=== PATIENT | female | born 2000 | race Caucasian/White ===

== ENCOUNTER 2022-07-06 15:48 | Emergency (ER) | payer OTHER ==
[~2022-07-06] VITALS: Ht 154.9 cm; Wt 100.0 kg
[2022-07-06 16:47] LABS: CLARITY URINE CLEAR (CLEAR); COLOR URINE YELLOW (YELLOW); KETONES URINE NEGATIVE (NEGATIVE); LEUKOCYTE ESTERASE URINE NEGATIVE (NEGATIVE); NITRITE URINE NEGATIVE (NEGATIVE); OCCULT BLOOD URINE NEGATIVE (NEGATIVE); PH URINE 7.5 (4.5-8.0); PROTEIN URINE NEGATIVE (NEGATIVE); SPECIFIC GRAVITY URINE 1.021 (1.005-1.030)
[2022-07-06 16:47] LABS: BASOPHILS % 0.3 % (0.0-2.0); EOSINOPHILS % 0.7 % (0.0-5.0); HEMATOCRIT. 39.2 % (36.0-48.0); HEMOGLOBIN. 13.1 g/dL (12.0-16.0); LYMPHOCYTES % 14.4 % (20.0-50.0); MEAN CORPUSCULAR HEMOGLOBIN 27.3 pg (28.0-32.0); MEAN CORPUSCULAR VOLUME 81.8 fL (81.0-99.0); MEAN PLATELET VOLUME 9.3 fl (7.4-10.4); MONOCYTES % 6.9 % (2.0-8.0); NEUTROPHILS % 77.7 % (40.0-76.0); PLATELET 406 x1000/uL (130-400); RED BLOOD CELL COUNT 4.79 mill/uL (4.2-5.4); RED CELL DISTRIBUTION WIDTH 13.8 % (11.6-14.6)
[2022-07-06 16:57] LABS: CHLORIDE 103 mEq/L (98-107)
[2022-07-06 17:05] LABS: HCG SCREEN NEGATIVE
[2022-07-06] MEDS ORDERED: ACETAMINOPHEN 325MG TABLET PO STA (17:12)
[2022-07-06] MEDS ORDERED: VISCOUS LIDOCAINE 2% 15 ML UDC PO STA (17:12)
[2022-07-06] MEDS ORDERED: MAGNESIUM/ALUMINUM HYDROXIDE/SIMETHICONE 30ML UDC PO STA (17:12)
[2022-07-06] MEDS ORDERED: FAMOTIDINE 20MG TABLET PO ONE (17:30)
[2022-07-06] MEDS ORDERED: FAMO-135 PO (19:01)
[2022-07-06 19:10] VITALS: BP 146/76
== END 2022-07-06 19:11 | disposition home or self-care (01) ==
LOC: ER 16:23
DX: R10.12 Left upper quadrant pain (principal)
CPT/HCPCS: 36415; 76705; 80053; 81003; 81025; 84703; 85025; 99284

== ENCOUNTER 2024-07-07 19:17 | Emergency (ER) | payer OTHER ==
[~2024-07-07] VITALS: Ht 154.9 cm; Wt 95.0 kg
[~2024-07-07 19:17] MED LIST: FAMO-135 PO
[2024-07-07 19:22] VITALS: O2SAT 99
[2024-07-07 19:41] VITALS: TEMP 37.6; O2SAT 98
[2024-07-07 21:14] VITALS: BP 128/81; PULSE 101; RESP 16
[2024-07-07] MEDS: IBUPROFEN 600MG TABLET PO STA (21:14)
[2024-07-07] MEDS ORDERED: NAPR-681 MT (21:32)
[2024-07-07] MEDS ORDERED: CHLO473M2 MT (21:32)
[2024-07-07] MEDS ORDERED: AMOX1TAB16 MT (21:32)
[2024-07-08] MEDS ORDERED: NAPR-681 MT (16:33)
[2024-07-08] MEDS ORDERED: AMOX1TAB16 MT (16:33)
[2024-07-08] MEDS ORDERED: CHLO473M2 MT (16:33)
== END 2024-07-07 21:37 | disposition home or self-care (01) ==
LOC: ER 19:17
DX: K05.00 Acute gingivitis, plaque induced (principal); Z79.899 Other long term (current) drug therapy
CPT/HCPCS: 87070; 87430; 99283

== ENCOUNTER 2024-07-08 15:39 | Emergency (ER) | payer OTHER ==
[~2024-07-08] VITALS: Ht 154.9 cm; Wt 95.0 kg
[~2024-07-08 15:39] MED LIST changes: +AMOX1TAB16 MT; +CHLO473M2 MT; +NAPR-681 MT
[2024-07-08 15:47] VITALS: O2SAT 97
[2024-07-08] MEDS ORDERED: NAPR-681 MT (16:33)
[2024-07-08] MEDS ORDERED: CHLO473M2 MT (16:33)
[2024-07-08] MEDS ORDERED: AMOX1TAB16 MT (16:33)
[2024-07-08 16:50] VITALS: BP 123/71; PULSE 97; RESP 14; TEMP 37.6; O2SAT 98
== END 2024-07-08 18:00 | disposition home or self-care (01) ==
LOC: ER 15:39
DX: R50.9 Fever, unspecified (principal); K05.10 Chronic gingivitis, plaque induced; Z76.0 Encounter for issue of repeat prescription; Z79.1 Long term (current) use of non-steroidal anti-inflammatories (NSAID); Z79.899 Other long term (current) drug therapy
CPT/HCPCS: 99281